=== PATIENT | female | born 1945 | race Caucasian/White ===

== ENCOUNTER 2017-04-11 07:20 | Day surgery (SDC) | payer MEDICARE ==
[~2017-04-11] VITALS: Ht 170.2 cm; Wt 80.2 kg
[2017-04-11] MEDS ORDERED: ESCI20 PO (08:09)
[2017-04-11] MEDS ORDERED: LEVO-T75 MCG PO (08:09)
[2017-04-11] MEDS ORDERED: LIOT25 PO (08:10)
== END 2017-04-11 13:30 | disposition home or self-care (01) ==
LOC: ORSCSDS 07:20
PROVIDERS: Orthopaedic Surgery
PROC: 0PSJ04Z Reposition Left Radius with Internal Fixation Device, Open Approach (ICD-10-PCS; principal; 2017-04-11 08:45)
DX: S52.502A Unspecified fracture of the lower end of left radius, initial encounter for closed fracture (principal); E03.9 Hypothyroidism, unspecified; F17.210 Nicotine dependence, cigarettes, uncomplicated; Z79.899 Other long term (current) drug therapy; Z86.79 Personal history of other diseases of the circulatory system
CPT/HCPCS: C1713; J0171; J0690; J2250; J2405; J3010; J7120

== ENCOUNTER 2019-05-17 10:36 | Emergency (ER) | payer MEDICARE ==
[~2019-05-17] VITALS: Ht 170.2 cm; Wt 76.2 kg
[~2019-05-17 10:36] MED LIST: ESCI20 PO; LEVO-T75 MCG PO; LIOT25 PO
== END 2019-05-17 11:57 | disposition home or self-care (01) ==
LOC: ER 10:36
DX: M54.32 Sciatica, left side (principal); Z88.6 Allergy status to analgesic agent; Z79.899 Other long term (current) drug therapy
CPT/HCPCS: 99283; J1885

== ENCOUNTER 2019-05-21 14:07 | Inpatient (IN) | payer MEDICARE ==
[~2019-05-21] VITALS: Ht 172.7 cm; Wt 75.6 kg
[~2019-05-21 14:07] MED LIST changes: -ESCI20 PO; -LEVO-T75 MCG PO; +LEVSOD100 PO; -LIOT25 PO
[2019-05-21 14:37] LABS: BASOPHILS ABSOLUTE AUTO 0.02 K/mm3 (0.00-0.23); BASOPHILS PERCENT AUTO 0 % (0-2); EOSINOPHILS ABSOLUTE AUTO 0.03 K/mm3 (0.00-0.68); EOSINOPHILS PERCENT AUTO 0 % (0-6); IMMATURE GRAN ABSOLUTE AUTO 0.04 K/mm3 (0.00-0.10); IMMATURE GRAN PERCENT AUTO 0 % (0-1); LYMPHOCYTES ABSOLUTE AUTO 1.42 K/mm3 (0.84-5.20); LYMPHOCYTES PERCENT AUTO 10 % (21-46); MONOCYTES ABSOLUTE AUTO 0.73 K/mm3 (0.16-1.47); MONOCYTES PERCENT AUTO 5 % (4-13); Mean Corpuscular HGB 35.9 pg (26.0-34.0); Mean Corpuscular HGB Conc 34.2 g/dL (31.5-36.5); Mean Corpuscular Volume 105 fL (80-100); Mean Platelet Volume 9.8 fL (9.1-12.4); NEUTROPHILS PERCENT AUTO 84 % (41-73); Platelet Count 231 K/mm3 (150-400); RDW Coefficient Variation 12.1 % (11.7-14.2); RDW Standard Deviation 47.6 fL (35.1-46.3); Red Blood Cell Count 3.62 M/mm3 (3.80-5.20); White Blood Cell Count 13.84 K/mm3 (4.00-11.30)
[2019-05-21 14:49] LABS: Source, Urine Clean Catch
[2019-05-21 14:56] LABS: Alanine Aminotransfer (ALT/SGP 23 U/L (12-78); Albumin, Blood 3.7 g/dL (3.4-5.0); Albumin/Globulin Ratio 1.2 (0.8-1.8); Alk Phos 45 U/L (50-136); Anion Gap 7 mmol/L (6-16); Aspartate Aminotrans (AST/SGOT 24 U/L (12-37); Bilirubin, Total 0.8 mg/dL (0.1-1.0); Blood Urea Nitrogen 21 mg/dL (8-24); Bun/Creatinine Ratio 26.6 (12.0-20.0); CO2, Blood 25 mmol/L (21-32); Calcium, Blood 8.6 mg/dL (8.5-10.1); Chloride, Blood 109 mmol/L (98-108); Creatinine, Blood 0.79 mg/dL (0.40-1.00); Globulin, Blood 3.1 g/dL (2.2-4.0); Glomerular Filtration Rate >60 (60-); Glucose, Blood 169 mg/dL (70-99); Potassium, Blood 3.6 mmol/L (3.5-5.5); Sodium, Blood 141 mmol/L (136-145); Total Protein, Blood 6.8 g/dL (6.4-8.2)
[2019-05-21 14:59] LABS: Bilirubin, Urine Neg (Neg); Blood, Urine 2+ (Neg); Glucose Qualitative, Urine Neg (Neg); Ketones, Urine Neg (Neg); Leukocyte Esterase, Urine Neg (Neg); Nitrite, Urine Neg (Neg); Protein, Urine Neg (Neg); Urobilinogen, Urine NORM (Normal)
[2019-05-21 15:10] LABS: Appearance, Urine Clear (Clear); Color, Urine Yellow (P-Yellow)
[2019-05-21 15:12] LABS: Bacteria Few /hpf; Mucus Light (0-Heavy); Squamous Epithelial Cells Few /hpf (Few); White Blood Cells, Urine 0-2 /hpf (0-5)
[2019-05-21] MEDS ORDERED: LIOT25 PO (15:49)
[2019-05-21] MEDS ORDERED: ESCI20 PO (15:49)
--- NOTE | 2019-05-21 16:17 | NUR ---
REPORT RECIEVED FROM JANELLE OH RN AT THIS TIME. PT CURRENTLY IN OR
--- NOTE | 2019-05-21 17:28 | NUR ---
History, Chart, Medications and Allergies reviewed before start of procedure.PER ER DAUGHTER ON HER WAY FROM [place]. WILL NEED TO GET TELEPHONE CONSENT FROM DAUGHTER DUE TO HX DEMENTIA.
--- NOTE | 2019-05-21 17:50 | NUR ---
IT WAS DETERMINED THAT PATIENT WAS OKAY TO SIGN OWN CONSENT. ABLE TO REP0RT UNDERSTANDING OF ABD SURGERY DUE TO ABD PAIN AND NAME AND
--- NOTE | 2019-05-21 20:58 | NUR ---
NG TUBE RIGHT NARE WHEN BROUGHT TO PACU INTACT WHEN SHE WAS TRANSFERED TO ICU
--- NOTE | 2019-05-22 | NUR ---
PT TO ICU 13 @ 2044 VIA WANDA WITH YARDAGE CONTROL OPERATOR FORMING. PT ALERT AND ORIENTED TO SELF, LOCATION, MONTH AND FOLLOWING DIRECTIONS. PT CONFUSED TO EVENTS, STS SHE HAS BEEN IN THE HOSPITAL FOR A COUPLE OF DAYS. PT PLEASANT AND VERY APPRECIATIVE OF NURSING CARE, VERY FORGETFUL, BUT REDIRECTABLE AND COOPERATIVE. UPON ARRIVAL TO UNIT, PT ON 10L O2 PER OXIMIZER. PT TITRATED DOWN TO 2L O2 PER NC (SEE FLOWSHEET), O2 SATURATIONS>90%. MONITOR SHOWS SINUS RHYTHM, HR 70'S, BP STABLE. PT WITH NG, CLAMPED, DENIES NAUSEA AT THIS TIME. LIUDMILA WOUND VAC TO MID ABD, SMALL AMOUNT OF SANGUINEOUS DRAINAGE NOTED, TARIQ DRAIN TO LOWER ABD WITH SEROSANGUINEOUS DRAINAGE. PT DENIES PAIN AT THIS TIME EXCEPT WITH COUGH AND REPOSITIONING, DENIES NEED FOR PAIN MEDICATION AT THIS TIME, EDUCATED PT ON SPLINTING WITH PILLOW TO DECREASE PAIN WHILE COUGHING. CASTELLON IN PLACE DRAINING JAVIER COLORED URINE, SCD'S IN PLACE, LR AND PROTONIX GTT INITIATED, CALL LIGHT WITHIN REACH. PTS DAUGHTER TO ROOM, EXPRESSES CONCERN REGARDING PT LIVING ALONE, STS PT HAS HAD INCREASED DIFFICULTY REMEMBERING TO TAKE DAILY MEDICATIONS, GO TO DOCTORS APPOINTMENTS, AND PERFORM ADL'S. PT HAS BEEN RESISTANT TO RECEIVING ANY SORT OF ASSISTANCE FROM FAMILY AND CARE GIVERS.
[2019-05-22 03:42] LABS: Hematocrit 35.2 % (33.0-51.0); Hemoglobin 11.9 g/dL (11.5-16.0); Mean Corpuscular HGB 35.7 pg (26.0-34.0); Mean Corpuscular HGB Conc 33.8 g/dL (31.5-36.5); Mean Corpuscular Volume 106 fL (80-100); Mean Platelet Volume 9.7 fL (9.1-12.4); Platelet Count 180 K/mm3 (150-400); RDW Coefficient Variation 12.2 % (11.7-14.2); RDW Standard Deviation 47.7 fL (35.1-46.3); Red Blood Cell Count 3.33 M/mm3 (3.80-5.20); White Blood Cell Count 9.25 K/mm3 (4.00-11.30)
[2019-05-22 03:49] LABS: Anion Gap 5 mmol/L (6-16); Blood Urea Nitrogen 17 mg/dL (8-24); Bun/Creatinine Ratio 20.4 (12.0-20.0); CO2, Blood 25 mmol/L (21-32); Chloride, Blood 113 mmol/L (98-108); Creatinine, Blood 0.84 mg/dL (0.40-1.00); Glomerular Filtration Rate >60 (60-); Glucose, Blood 147 mg/dL (70-99); Potassium, Blood 3.4 mmol/L (3.5-5.5); Sodium, Blood 143 mmol/L (136-145)
--- NOTE | 2019-05-22 04:00 | NUR ---
PRN DILAUDID PROVIDED FOR PAIN WITH NO RELIEF.
--- NOTE | 2019-05-22 04:26 | NUR ---
CALL PLACED TO DR GUAN REGARDING MORNING LABS, PAIN AND NG CLARIFICATION. ORDER FOR DILAUDID DRY MOP MAKER, 40 MEQ KCL IV, AND NG TO LOW INTERMITENT SUCTION.
--- NOTE | 2019-05-22 04:36 | NUR ---
FOLLOW UP WITH DR GUAN REGARDING DILAUDID SOFTWARE RELEASE ENGINEER, ORDER CHANGED TO 0.4MG DILAUDID IV Q2H PRN FOR PAIN.
[2019-05-22 05:21] LABS: BAND PERCENT MAN 24 % (0-8); BASOPHILS PERCENT MAN 0 % (0-2); EOSINOPHILS PERCENT MAN 0 % (0-6); LYMPHOCYTES ABSOLUTE MAN 0.64 K/mm3 (0.84-5.20); LYMPHOCYTES PERCENT MAN 7 % (21-46); MONOCYTES ABSOLUTE MAN 0.37 K/mm3 (0.16-1.47); MONOCYTES PERCENT MAN 4 % (4-13); NEUTROPHILS ABSOLUTE MAN 8.23 K/mm3 (1.96-9.15); SEG NEUTROPHILS PERCENT MAN 65 % (41-73); TOTAL CELLS COUNTED 100
--- NOTE | 2019-05-22 06:06 | NUR ---
SHIFT SUMMARY PT REMAINS STABLE T/O NIGHT, RESTED WELL, AWOKE @ APPROX 0330 WITH SOME COMPLAINTS OF ABD PAIN, PRN PN MEDICATION PROVIDED, SEE CALL PLACED TO DR GUAN. PT ON 2L O2 PER NC, OXYGEN SATURATIONS>90%. MONITOR SHOWS SINUS RHYTHM, HR 70'S, BP STABLE. WOUND VAC IN PLACE, SMALL AMOUNT OF DRAINAGE. TARIQ DRAIN IN PLACE WITH 90ml DRAINAGE THIS SHIFT. PT COMPLAINS OF THIRST, ORAL SWABS AND MOISTURIZER PROVIDED. PT VERY FORGETFUL, NEEDING REMINDING OF NPO STATUS, CASTELLON PRESTENT TO DRAIN URINE, AND REMINDING THAT DAUGHTER (WHO LIVES OUT OF TOWN) VISITED LAST NIGHT AND WILL BE BACK THIS MORNING. PT REMAINS PLEASANT AND COOPERATIVE, VERY APPRECIATIVE OF NURSING CARE.
--- NOTE | 2019-05-22 09:07 | NUR ---
CARE ASSUMED ASSESSMENT COMPLETED, PT AWAKE, ALERT AND ORINETED, SPEECH SLOW AND SLURRED, THIS IS BASELINE ACCORDING TO RN REPORT. VSS, PT DENIES PAIN AT THIS TIME, ATE SOME BREAKFAST WITHOUT DIFFICULTY. PT JAUNDICED, BRUISING NOTED TO UE'S, LE'S EDEMATOUS, ABX OINTMENT APPLIED PER ORDERS. R INNER THIGH WEEPING, DRESSING CHANGED. PT DENIES C/O AT THIS TIME, IS PLEASANT AND COOPERATIVE. AT BEDSIDE. JONATHAN CURIEL AND EUNICE IN TO ASSESS, PT TO DIALYSIS AT 0905.
--- NOTE | 2019-05-22 09:11 | NUR ---
CARE ASSUMED ASSESSMENT COMPLETED, PT AWAKE AND ALERT, FORGETFUL, PLEASANT, VSS. LIUDMILA DRESSING TO MID ABD DRY AND INTACT WITH A SMALL AMOUNT OF DRIED BLOOD, PRESENT, JAQUAN DRAIN TO LLQ COMPRESSED WITH SEROSANG DRAINAGE. PT REPORTS 8/10 MID ABD PAIN, DENIES NAUSEA, MEDICATED PER ORDERS. BT ABSENT, NO DISTENSION NOTED, ABD SOFT. CASTELLON PATENT AND DRAINING, PROTONIX AND POTASSIUM INFUSING PER ORDERS. NGT TO LIWS WITH SMALL AMOUNT OF GREEN BILE. DAUGHTER AT BEDSIDE INTERMITTENTLY, PT SLEEPING AFTER DILAUDID.
--- NOTE | 2019-05-22 11:29 | NUR ---
PT RESTING WELL AFTER DILAUDID, WOKEN FOR REPOSITIONING AND C/O PAIN, MEDICATED AGAIN PER ORDERS. ABD ASSESSMENT UNCHANGED, VS REMAIN STABLE, PT ORINETED BUT FORGETFUL, DENIES OTHER NEEDS AT THIS TIME, COOPERATIVE WITH CARE.
[2019-05-22] MEDS ORDERED: METPRE4DP PO (11:36)
--- NOTE | 2019-05-22 11:39 | NUR ---
PER PT'S DAUGHTER, PT HAS A DEEP BRAIN STIMULATOR IMPLANT IN LEFT SUBCLAVIAN AREA TO TREAT ESSENTIAL TREMORS. PT DOES NOT HAVE AN AICD.
--- NOTE | 2019-05-22 14:10 | NUR ---
UPDATE PT'S SON AND DAUGHTER AT BEDSIDE, DR. GUAN IN TO SPEAK WITH PT AND FAMILY. IT BUSINESS SYSTEMS ANALYST CONSULTED FOR FAMILY CONCERNS OF PATIENT HAVING DEMENTIA AND BEING UNABLE TO CARE FOR HERSELF AT HOME. PT CONTINUES TO REST, WAKES EASILY, VSS. PT PALE, BP AND HR WNL.
--- NOTE | 2019-05-22 17:49 | NUR ---
UPDATE PT CONTINUES TO REST, HAS BEEN SLEEPING MOST OF THE DAY. WOKE UP FOR AN HOUR EARLIER FOR MD AND FAMILY VISIT. WAKES EASILY, IS CONFUSED/FORGETFUL BUT APPROPRIATE. VSS T/O SHIFT, ABD ASSESSMENT REMAINS UNCHANGED, NO BT PRESENT. JAQUAN WITH 60ML SEROSANG OUTPUT, NO BLEEDING AT WOUND VAC SITE. SCANT OUTPUT FROM NGT TO LIWS, OUTPUT GREEN BILE. URINE OUTPUT LOW TODAY, DR. GUAN NOTIFIED EARLIER OF THIS, INSTRUCTIONS TO CONTINUE LR@100ML/HR AND MONITOR OUTPUT. PT REPOSITIONING SELF IN BED, DENIES NEEDS AT THIS TIME. MUSTANGER DISCUSSED PLAN OF CARE WITH PT'S SON, DAUGHTER AND DR. WILSON.
--- NOTE | 2019-05-22 18:51 | NUR ---
REPORT TO ONCOMING SHIFT. PT CONTINUES TO SLEEP, VSS. O2 2L/NC.
--- NOTE | 2019-05-22 19:31 | NUR ---
ASSUMED CARE OF PT AT 1915. REPORT RECEIVED AT BEDSIDE. PT PRESENTS IN BED SLEEPING. PT IN NO APPARENT DISTRESS AT THIS TIME. WILL COMPLETE ASSESSMENT UPON NEXT PT CHECK. ALLOW PT TO REST. WILL REVIEW CHART AND PLAN OF CARE FOR PT.
--- NOTE | 2019-05-23 01:10 | NUR ---
PT HAS TOLERATED TURNS IN BED WELL. ABLE TO ASSIST WITH REPOSITIONING. NO CHANGES TO PREVIOUS ASSESSMENT OF DRESSINGS. JAQUAN BULB REMAINS COMPRESSED FOR SUCTION. WILL CONTINUE TO MONITOR.
[2019-05-23 03:40] LABS: BASOPHILS ABSOLUTE AUTO 0.02 K/mm3 (0.00-0.23); BASOPHILS PERCENT AUTO 0 % (0-2); EOSINOPHILS ABSOLUTE AUTO 0.06 K/mm3 (0.00-0.68); EOSINOPHILS PERCENT AUTO 1 % (0-6); Hematocrit 34.3 % (33.0-51.0); Hemoglobin 11.3 g/dL (11.5-16.0); IMMATURE GRAN ABSOLUTE AUTO 0.03 K/mm3 (0.00-0.10); IMMATURE GRAN PERCENT AUTO 0 % (0-1); LYMPHOCYTES ABSOLUTE AUTO 1.02 K/mm3 (0.84-5.20); LYMPHOCYTES PERCENT AUTO 15 % (21-46); MONOCYTES ABSOLUTE AUTO 0.34 K/mm3 (0.16-1.47); MONOCYTES PERCENT AUTO 5 % (4-13); Mean Corpuscular HGB 35.5 pg (26.0-34.0); Mean Corpuscular HGB Conc 32.9 g/dL (31.5-36.5); Mean Corpuscular Volume 108 fL (80-100); Mean Platelet Volume 9.9 fL (9.1-12.4); NEUTROPHILS ABSOLUTE AUTO 5.54 K/mm3 (1.96-9.15); NEUTROPHILS PERCENT AUTO 79 % (41-73); Platelet Count 149 K/mm3 (150-400); RDW Coefficient Variation 12.2 % (11.7-14.2); RDW Standard Deviation 48.5 fL (35.1-46.3); Red Blood Cell Count 3.18 M/mm3 (3.80-5.20); White Blood Cell Count 7.01 K/mm3 (4.00-11.30)
[2019-05-23 04:07] LABS: Magnesium, Blood 1.8 mg/dL (1.6-2.4)
[2019-05-23 04:24] LABS: Alanine Aminotransfer (ALT/SGP 22 U/L (12-78); Albumin, Blood 2.6 g/dL (3.4-5.0); Albumin/Globulin Ratio 0.8 (0.8-1.8); Anion Gap 3 mmol/L (6-16); Aspartate Aminotrans (AST/SGOT 16 U/L (12-37); Bilirubin, Total 0.6 mg/dL (0.1-1.0); Blood Urea Nitrogen 15 mg/dL (8-24); Bun/Creatinine Ratio 19.8 (12.0-20.0); CO2, Blood 28 mmol/L (21-32); Calcium, Blood 8.3 mg/dL (8.5-10.1); Chloride, Blood 113 mmol/L (98-108); Creatinine, Blood 0.76 mg/dL (0.40-1.00); Globulin, Blood 3.1 g/dL (2.2-4.0); Glomerular Filtration Rate >60 (60-); Glucose, Blood 88 mg/dL (70-99); Potassium, Blood 3.8 mmol/L (3.5-5.5); Sodium, Blood 144 mmol/L (136-145); Total Protein, Blood 5.7 g/dL (6.4-8.2)
[2019-05-23 04:33] LABS: Alk Phos 38 U/L (50-136)
--- NOTE | 2019-05-23 06:19 | NUR ---
PT HAS BEEN MEDICATED THREE TIMES THIS NIGHT WITH 0.4 MG DILAUDID FOR ABDOMINAL PAIN. PT'S JAQUAN DRAIN HAS BEEN EMPTIED OF 100 ML SEROUSANGEOUS FLUID. PT REMAINS PLEASANT AND VERY APPRECIATIVE OF STAFF. SHE HAS BEEN ABLE TO REPOSITION HERSELF AT TIMES IN BED.
--- NOTE | 2019-05-23 06:22 | NUR ---
PT'S NGT HAS ONLY SMALL AMOUNT OF CLEAR LIGHT GREEN LIQUID. PT HAS DENIED ANY FLATUS THIS NIGHT. DOES HAVE HYPOACTIVE BOWEL TONES. WILL CONTINUE TO MONITOR PT, AND WILL REPORT OFF TO ONCOMING RN.
--- NOTE | 2019-05-23 10:04 | NUR ---
ASSUMED CARE PT IS IN BED, ALERT AND ORIENTED TO SELF, FAMILY, SURROUNDINGS (NOT PLACE - THOUGHT SHE WAS IN A [facility] OR [facility]) AND SORT OF THE SITUATION. SHE HAS SOME MEMORY ISSUES, ASKING THE SIMILAR QUESTIONS IN A ROW. SHE HAS A MIDLINE INCISION THAT HAS A LIUDMILA WOUND VAC TO IT, DRESSING HAS MINIMAL DRAINAGE THAT IS NOT INCREASING, AND SHE HAS A JAQUAN DRAIN IN HER LLQ WITH MINIMAL SEROSANGUINOUS DRAINAGE. I BELIEVE SHE IS IN A SINUS RHYTHM BUT WITH SOME T WAVE ABNORMALITIES AND POTENTIALLY A BUNDLE BRANCH BLOCK OF SOME KIND. SHE HAS A STABLE RATE, AND SLIGHTLY ELEVATED BLOOD PRESSURES. SHE DENIES PAIN UNLESS SHE COUGHS OR LAUGHS, MARIBELL INSTRUCTED HER HOW TO USE A PILLOW WHEN SHE HAS TO DO THOSE TWO THINGS. SHE CURRENTLY IS GONE TO IMAGING FOR HER CT SCAN. SHE HAS A NG TUBE HOOKED UP TO LIS SHOWING A BILE-COLORED LIQUID. DENIES NAUSEA. BED LOW AND LOCKED. CALL LIGHT WITHIN REACH.
--- NOTE | 2019-05-23 17:52 | NUR ---
SHIFT SUMMARY TODAY HAS BEEN QUITE THE DAY. SHE IS ALERT AND HAS BEEN AWAKE FOR MAJORITY OF DAY, AND SHE IS ORIENTED TO HERSELF, FAMILY, AND GENERAL SURROUNDINGS. SHE HAS SIGNS OF DEMENTIA, LIKE SHORT TERM MEMORY LOSS AND COGNITIVE DYSFUNCTION. SOME EXAMPLES: 1. I PLACED A CUP OF WATER WITH MOUTH-WATTERING SWABS BY THE BED, AND SHE PICKED UP THE CUP AND TRIED TO SUCK WATER THROUGH THE SWABS LIKE IF THEY WERE STRAWS. AFTER STOPPING HER AND EXPLAINING WHAT THEY WERE, SHE PROCEEDED TO DO IT AGAIN 3 MINUTES LATER. 2. SHE KEEPS TELLING ME ABOUT HER KIDS AND WHAT THEY DO PROFESSIONALLY AND KEEPS GETTING SURPRISED THAT THEY HAVE BEEN VISITING ALL DAY. 3. ASKING WHEN SHE CAN LEAVE SO SHE CAN GO HOME AND TAKE CARE OF HER DOGS AND NOT REALIZING SHE HAS HAD A SURGERY (OVER AND OVER AGAIN). ALSO FORGETTING THAT HER DAUGHTER IS VISITING FROM [place] AND HAS BEEN STAYING AT THE HOUSE. 4. KEEPS MESSING WITH THINGS THAT ARE CONNECTED TO HER (LINES, TUBES, DRAINS) AND THINKING THEY ARE DIFFERENT THINGS. LIKKE THINKING THE PULSE OX WAS THE CALL LIGHT BUTTON. HER DAUGHTER, STATES, THIS IS HER BASELINE AT HOME. DEYSI (HER SON) AND RICARDO ARE BOTH VERY CONCERNED FOR HER SAFETY. FEELING THAT SHE IS UNABLE TO TAKE CARE OF HERSELF. THEY WISH TO GAIN [place]URDI[place]SHIP. THE LAST FEW HOURS SHES BEEN TRYING TO GET UP, ONE TIME BEING SUCCESSFUL STANDING UP AND GETTING A FEW STEPS AWAY FROM THE BED. HER CASTELLON WAS TAKEN OUT (BALLOON STILL INFLATED) AND WAS BLEEDING FROM HER URETHRA, WHICH HAD STOPPED SHORTLY AFTER. ONE OF HER IV'S CAME OUT, SHE HAD PULLED OUT HER NG TUBE OUT TOO AND BROKE THE LIUDMILA WOULD VAC ALONG WITH TAKING OFF THE JAQUAN DRAIN DRESSING. AND FORGETTING ABOUT DOING ALL OF THIS. THIS OCCURED AND HAS BEEN OCCURING AFTER THE FAMILY LEFT. SHE HAD BEEN IN [employer] ALL DAY, AND DESPITE BEING FORGETFUL AND CONFUSED. SHE HAS SINCE BECOME VERY AGITATED, DEMANDING SHE LEAVE AND FEED HER DOGS. SHE HAS CALLED HER FRIEND TO COME PICK HER UP, SAYING SHE IS READY TO GO HOME. WITH EVERYTHING THAT HAPPENED AND IN ORDER TO KEEP HER SAFE SHE WAS PUT IN RESTRAINTS BOTH A MARTHA AND BILATERAL SWBs. DR MEDEL ORDERED 0.25MG ATIVAN BUT HAD MINIMAL EFFECT. SHE REMAINS IN BED IN RESTRAINTS, SLIGHTLY MORE CALM BUT REMAINS AGITATED AND CONVINCED SHE NEEDS TO LEAVE. PLATE FITTER IS CONSULTED AND WILL FOLLOW UP WITH FAMILY AND PT. BED LOW AND LOCKED. CALL LIGHT HAS BEEN IN REACH ALL DAY.
--- NOTE | 2019-05-23 19:15 | NUR ---
ASSUMED CARE AT 1915. PT ALERT TO SELF AND FAMILY AT SHIFT CHANGE. VITAL WNL. SHORT TERM MEMORY LOSS. FORGETS SHE IS IN THE HOSPITAL MID CONVERSATION. BECOMES AGITATED WITH THE RESTRAINTS, PT BELIEVE SHE IS AT HOME EVEN AFTER REORIENTATED. DENIES PAIN BUT IS IN DISCOMFORT, WITH MOVEMENT AND REPOSITION.
--- NOTE | 2019-05-23 21:31 | NUR ---
PT RESTLESS, PULLING A RESTRAINTS, FORGETFUL . REORIENTATED AND 5 MINUTES LATER PT REPEATS SAME REQUEST AND ATTEMPS TO GET OUT OF BED AND PULL OUT LINES
--- NOTE | 2019-05-23 22:59 | NUR ---
PT REQUETING TO GO HOME TO TAKE CARE OF DOGS. FORGOT DAUGHTER VISITED TODAY AND DOES NOT KNOW WHY SHE CAME IN TO HOSPITAL. REQUESTED DOCTOR COME EVALUATE. FORGETS SHE HAD SURGERY.
--- NOTE | 2019-05-23 23:45 | NUR ---
PT BECAME HIGHLY AGITATED SCREAMING ABOUT GOING HOME TO TAKE CARE OF DOGS. PT REMINDED THAT DAUGHTER IS TAKING CARE OF THEM, REFUSES TO BELEIVE STAFF AND IS CONVINCED THAT SHE CAME IN ON HER OWN. PT MANAGED TO SLIP OUT OF RIGHT HAND RESTRAINT AND SWUNG AT MYSELF WITTNESSED BY DINAH MENSAH. PT THREATENED TO PUNCH ME IN THE FACE.
--- NOTE | 2019-05-24 00:33 | NUR ---
PT SLIPPED OUT OF RESTRAINT AGAIN. PT VERBALIZED PAIN, DILAUDID GIVEN. PT STILL TRYING TO GO HOME AND DENIES HAVING SURGEY.
--- NOTE | 2019-05-24 00:56 | NUR ---
PT WOKE UP FROM [place]. DOES NOT REMEMBER ME OR OTHER STAFF, UNABLE TO REMEMBER HOW SHE ARRIVED TO HOSPITAL AND IS DEMANDING US TO LET HER GO HOME. ABLE TO PLAY THE PART AND TRY TO SAY WHAT STAFF WANTS TO HEAR IN ABLE TO LET HER LEAVE. SHE DOES NOT REALIZE THAT SHE IS RECOVERING FROM A SURGERY. SHE IS DENIAL AND IS A SAFETY RISK AND A CONCERN FOR HOME SAFETY BEING SHE LIVES ALONE WITH HER DOGS.
--- NOTE | 2019-05-24 02:30 | NUR ---
HELP PT TO BEDSIDE TOILET WITH NO OUTPUT. PLACED BACK IN BED. WHEN I WENT REAPPLY RESTRAINTS PT SAT UP AND TRIED TO GET OUT OF BED AND GO HOME. WITH THE CHARGE NURSE ASSISTED TO GET HER TO LAY BACK DOWN. ONCE SHE WAS LAID FLAT PT WENT TO SLEEP.
--- NOTE | 2019-05-24 06:07 | NUR ---
PT CONFUSED, SHORT-TERM MEMORY LOSS, DID NOT REMEMBER HAVING SURGERY, AND WAS CONSTANLY TYING TO GET OUT OF AND AND LEAVE HOSPITAL. NO RECOLECTION OF HOW SHE ARRIVED AT THE HOSPITAL. WHEN TOLD AND SHOWN SURGERY SITE AND DRAINS WOULD SAY IT WAS OLD. AT ONE POINT SHE WAS THREATENING MYSELF AND DID SWING TOWARDS MY FACE. PROVIDER CALLED HALDOL ORDERED AND GIVEN. PT STILL AGITATED. SHE DID VERBALIZE PAIN ONCE. SHE DOES MOAN AND GRUNT WITH REPOSTION AND TURNS. BUT REFUSED ANY MORE PAIN MEDS. SHE WAS ABLE TO SLIP OUT OF WRIST RESTRAINTS MULTIPLE TIME, AND ATTEMPED TO GET OUT OF BED. PT DID NOT PULL AT IV,LINES OR DRAIN AND WAS ABLE TO REST COMFORTABLE IN VEST ONLY. THE WRIST RESTRAINTS WERE CASUING MORE AGGITATION THROUGHOUT THE NIGHT. NEW RESTAINT ORDER PLACED FOR VEST ONLY. PT WOKE UP MORE COOPERTIVE. WITH THAT SAID I DO BELEIVE SHE IS A FALL/SAFETY RISK AND MAY NEED ASSISTANTS AT HOME WELL. POSSIBLY SUN DOWNING. WILL CONTINUE TO MONITOR, MAY NEED PSYCH EVAL TO DX DEMENTIA OR SIMULAR DIEASE PROCESS.
[2019-05-24 06:22] LABS: BASOPHILS ABSOLUTE AUTO 0.02 K/mm3 (0.00-0.23); BASOPHILS PERCENT AUTO 0 % (0-2); EOSINOPHILS ABSOLUTE AUTO 0.13 K/mm3 (0.00-0.68); EOSINOPHILS PERCENT AUTO 2 % (0-6); IMMATURE GRAN ABSOLUTE AUTO 0.03 K/mm3 (0.00-0.10); IMMATURE GRAN PERCENT AUTO 0 % (0-1); LYMPHOCYTES ABSOLUTE AUTO 0.74 K/mm3 (0.84-5.20); LYMPHOCYTES PERCENT AUTO 11 % (21-46); MONOCYTES ABSOLUTE AUTO 0.39 K/mm3 (0.16-1.47); MONOCYTES PERCENT AUTO 6 % (4-13); Mean Corpuscular HGB 35.9 pg (26.0-34.0); Mean Corpuscular HGB Conc 34.4 g/dL (31.5-36.5); Mean Corpuscular Volume 105 fL (80-100); Mean Platelet Volume 9.7 fL (9.1-12.4); NEUTROPHILS ABSOLUTE AUTO 5.44 K/mm3 (1.96-9.15); NEUTROPHILS PERCENT AUTO 81 % (41-73); Platelet Count 164 K/mm3 (150-400); RDW Coefficient Variation 11.9 % (11.7-14.2); RDW Standard Deviation 45.4 fL (35.1-46.3); Red Blood Cell Count 3.06 M/mm3 (3.80-5.20); White Blood Cell Count 6.75 K/mm3 (4.00-11.30)
[2019-05-24 06:38] LABS: Albumin, Blood 2.6 g/dL (3.4-5.0); Anion Gap 5 mmol/L (6-16); Blood Urea Nitrogen 12 mg/dL (8-24); Bun/Creatinine Ratio 19.6 (12.0-20.0); CO2, Blood 27 mmol/L (21-32); Calcium, Blood 8.3 mg/dL (8.5-10.1); Chloride, Blood 108 mmol/L (98-108); Creatinine, Blood 0.61 mg/dL (0.40-1.00); Glomerular Filtration Rate >60 (60-); Glucose, Blood 86 mg/dL (70-99); Magnesium, Blood 1.7 mg/dL (1.6-2.4); Phosphorus, Blood 1.7 mg/dL (2.5-4.9); Potassium, Blood 3.3 mmol/L (3.5-5.5); Sodium, Blood 140 mmol/L (136-145)
--- NOTE | 2019-05-24 17:32 | NUR ---
Per admit trigger, I attempted to meet with Mrs. Reyes to offer prayer and spiritual support. She has been quite confused all day. No family present. this evening, she is finally resting. Prayer provided at bedside. I will remain available to pt and family.
--- NOTE | 2019-05-24 20:00 | NUR ---
ASSUMPTION OF CARE ASSUMED CARE OF PT @ 1915, PT SLEEPING IN BED, REPORT FROM PREVIOUS SHIFT PT MEDICATED WITH ATIVAN, BENADRYL AND ATIVAN. PT OPENS EYES WITH VERBAL STIMULI AND GRIMACES WITH PAINFUL STIMULI, MUMBLES SOME WORDS AND QUICKLY FALLS BACK ASLEEP. RESPIRATIONS EVEN AND UNLABORED, O2 SATURATIONS>90% ON 2L PER NC. MONITOR SHOWS SINUS RHYTHM WITH HR 48-50'S, BP STABLE. IMPLANTED NEUROSTIMULATOR DEVICE TO L UPPER CHEST. BOWEL TONES HYPOACTIVE, LIUDMILA WOUND VAC TO MIDLINE ABD, JAQUAN DRAIN TO LLQ MINIMAL DRAINAGE NOTED. BED ALARM ON, MARTHA VEST IN PLACE. CALL LIGHT WITHIN REACH.
--- NOTE | 2019-05-24 20:08 | NUR ---
BEDSIDE REPORT TAKEN AT 0715 THIS AM. PT'S DAUGHTER PRESENT AT BEDSIDE. PT PLEASANT AND COOPERATIVE AT BEGINNING OF SHIFT WHILE DAUGHTER PRESENT. PT ASSISTED T/O SHIFT TO COMMODE AND THEN TO TOILET TO VOID. PT ABLE TO BEAR WEIGHT BUT HAS UNSTAEDY GAIT AND SOME WEAKNESS NOTED. PT IMPULSIVE AND NEEDS SUPERVISION AT ALL TIMES. MARTHA VEST REMOVED THIS AM AT 1000 WITH DAUGHTER AT BEDSIDE. DR CARABALLO IN TO SEE PT AND SPEAK W PT'S DAUGHTER AT 1120. CONSULT WITH DR SANDOVAL ORDERED FOR COGNITIVE ASSESSMENT 2ND TO DEMENTIA. KPHOS RIDER ORDERED AND INFUSED. LR AT 100CC/HR PT NPO. DR GUAN IN TO SEE PT AT 0900; ABD XRAY ORDERED; PT DOWN TO XRAY FOR IMAGES. PLAN IS FOR A BARRIUM SWALLOW TOMORROW AND THEN POSSIBLE DIET TOMORROW. DRSG TO MIDLINE ABD C/D/I WITH LIUDMILA WOUND VAC; SCANT TO NO DRAINAGE NOTED. JAQUAN TO LLQ PUTTING OUT SCANT SS FLUID. AFTER PT'S DAUGHTER LEFT PT BECAME MORE AGITATED. PT CONTINUOUSLY CLIMBED OUT OF BED WITHOUT ASSISTANCE; BED ALARM ON. PT WOULD STATE THAT SHE WAS GOING HOME. PT WAS CONFUSED ABOUT DETAILS SURROUNDING SURGERY AND STATED THAT SHE WAS FINE AND HAD JUST EATEN. PT BECAME PHYSICAL AT ONE POINT GRABBING MY ARM AND TRYING TO WALK PAST/THROUGH ME. PT WAS DISTRACTED WITH PHYSICAL THERAPY; BUT ONCE AGAIN BECAME FURTHER CONFUSED AND AGITATED. SHE PULLED OUT TWO IV'S, BOTH INADVERTENTLY WHILE TRYING TO "LEAVE THE HOSPITAL TO GO HOME". DR SANDOVAL CONSULTED PT AND PLACED PT ON 2MD HOLD AND RECOMMENDED PLACEMENT IN [facility]. AFTER PHYSICAL THERAPY, PT WAS PLACED BACK ON TELEMETRY; PT WAS FOUND TO BE IN AFIB W RVR; RATE 110-136. PT HYPERTENSIVE WELL. DR CARABALLO CALLED. ONE DOSE OF IV CARDIAZEM 10MG GIVEN. PT ATTEMPTED TO GET OUT OF BED AGAIN SHORTLY AFTER THIS. PT REFUSED TO COOPERATE WITH PLACEMENT OF MARTHA AND BECAME VERY AGITATED, ATTEMPTING TO LEAVE AGAIN. ATIVAN/BENADRYL/AND HALDOL WERE GIVEN TOGETHER DR SANDOVAL HAD RECOMMENDED. PT ASLEEP SHORTLY THERE AFTER. HTN IMPROVED AND PT CONVERTED BACK INTO SINUS BRADYCARDIA. PT AROUSES FROM SLEEP TO VOICE. MARTHA VEST PLACED. REPORT GIVEN AT BEDSIDE AT 1920. CALL PLACED TO PT'S DAUGHTER TO GIVE UPDATE.
--- NOTE | 2019-05-24 20:30 | NUR ---
SPOKE WITH DAUGHTER, SIENA, UPDATED ON PTS STATUS. PT RESTING AT THIS TIME.
--- NOTE | 2019-05-24 22:00 | NUR ---
PT MORE AROUSABLE, OFFERED TOILETING, PT DECLINES AT THIS TIME. STS SHE WANTS TO GO BACK TO SLEEP. BED ALARM ON, CALL LIGHT WTIHIN REACH. MARTHA VEST REMAINS IN PLACE PT FORGETFUL TO LIMITATIONS, DEC LOC.
[2019-05-25 03:58] LABS: BASOPHILS ABSOLUTE AUTO 0.03 K/mm3 (0.00-0.23); BASOPHILS PERCENT AUTO 1 % (0-2); EOSINOPHILS ABSOLUTE AUTO 0.23 K/mm3 (0.00-0.68); EOSINOPHILS PERCENT AUTO 4 % (0-6); Hematocrit 32.6 % (33.0-51.0); Hemoglobin 11.4 g/dL (11.5-16.0); IMMATURE GRAN ABSOLUTE AUTO 0.01 K/mm3 (0.00-0.10); IMMATURE GRAN PERCENT AUTO 0 % (0-1); LYMPHOCYTES ABSOLUTE AUTO 0.91 K/mm3 (0.84-5.20); LYMPHOCYTES PERCENT AUTO 17 % (21-46); MONOCYTES PERCENT AUTO 7 % (4-13); Mean Corpuscular HGB 35.6 pg (26.0-34.0); Mean Corpuscular Volume 102 fL (80-100); Mean Platelet Volume 9.7 fL (9.1-12.4); NEUTROPHILS ABSOLUTE AUTO 3.83 K/mm3 (1.96-9.15); NEUTROPHILS PERCENT AUTO 71 % (41-73); Platelet Count 182 K/mm3 (150-400); RDW Coefficient Variation 11.7 % (11.7-14.2); RDW Standard Deviation 43.7 fL (35.1-46.3); White Blood Cell Count 5.41 K/mm3 (4.00-11.30)
[2019-05-25 04:21] LABS: Alanine Aminotransfer (ALT/SGP 20 U/L (12-78); Albumin, Blood 2.4 g/dL (3.4-5.0); Albumin/Globulin Ratio 0.8 (0.8-1.8); Alk Phos 36 U/L (50-136); Anion Gap 6 mmol/L (6-16); Aspartate Aminotrans (AST/SGOT 17 U/L (12-37); Bilirubin, Total 0.8 mg/dL (0.1-1.0); Blood Urea Nitrogen 11 mg/dL (8-24); Bun/Creatinine Ratio 15.9 (12.0-20.0); CO2, Blood 26 mmol/L (21-32); Calcium, Blood 8.2 mg/dL (8.5-10.1); Chloride, Blood 108 mmol/L (98-108); Creatinine, Blood 0.69 mg/dL (0.40-1.00); Globulin, Blood 2.9 g/dL (2.2-4.0); Glomerular Filtration Rate >60 (60-); Glucose, Blood 79 mg/dL (70-99); Magnesium, Blood 1.6 mg/dL (1.6-2.4); Phosphorus, Blood 2.6 mg/dL (2.5-4.9); Potassium, Blood 3.2 mmol/L (3.5-5.5); Sodium, Blood 140 mmol/L (136-145); Total Protein, Blood 5.3 g/dL (6.4-8.2)
--- NOTE | 2019-05-25 05:08 | NUR ---
REPORT CALLED TO TOO VALDIVIA ON MEDICAL FLOOR. UPDATED DAUGHTER ON PTS STATUS AND TRANSFER TO ROOM 346.
--- NOTE | 2019-05-25 06:08 | NUR ---
TRANSFER TO ROOM 346 PT ARRIVED TO ROOM 346 FROM ICU13 AT APPROXIMATELY 0550. PT ALERT AND ORIENTED TO SELF AND STAFF, FOLLOWING DIRECTION AND IS PLEASANT. PT ABLE TO TRANFER TO NEW BED WITH A 1 PERSON ASSIST. ASSISTED PT TO BSC AND THEN HELPED BACK TO BED, MARTHA SIMMONS ON. Jaime ANDRES STARTED. WILL CONTINUE TO MONITOR.
--- NOTE | 2019-05-25 07:48 | NUR ---
05/25/19 0748 Ela Croft VERIFICATIONS: EDIT CHART.
--- NOTE | 2019-05-25 13:55 | NUR ---
PT. TO RADIOLOGY FOR PROCEDURE VIA IVETTRJB. MARTHA VEST REMOVED BEFORE SHE LEFT AND IV S.L. LOCKED.REMOVED TELE AND NOTIFIED WIND TURBINE PERFORMANCE ENGINEER.
--- NOTE | 2019-05-25 18:28 | NUR ---
PT. BACK TO ROOM AFTER HAVING IMAGING WITH CONTRAST. HAS HAD DIARRHEA SEVEERAL TIMES SINCE RETURNING TO ROOM. PT. A STANDBY ASSIST TO THE BATHROOM. PT. HAS NOT BEEN COMBATIVE TODAY AND HAS BEEN COOPERATIVE. PT. IS SLEEPING AT THIS TIE.
--- NOTE | 2019-05-26 04:54 | NUR ---
SHIFT SUMMARY PT IS A 73 Y/O FEMALE, ADMITTED FOR PERITONITIS. SHE RECENTLY HAD AN ABD SURGICAL REPAIR OF A PERFORATED ULCER, WITH A WOUND VAC IN PLACE ON THE SURGICAL SITE AND A JAQUAN DRAIN IN THE L MID ABD. PT IS CONFUSED, A&O X SELF ONLY, AND A 1PA OUT OF BED. SHE WAS OVERALL COOPERATIVE WITH CARE. PT HAD SEVERAL EPISODES OF DIARRHEA DURING THE NIGHT, INCLUDING ONE INCONTINENT EPISODE. NO COMPLAINTS OF PAIN, NAUSEA OR SOB. PT SLEPT WELL THROUGH THE NIGHT. VITAL SIGNS STABLE. NO OTHER ACUTE CHANGES IN PT CONDITION NOTED. WILL CONTINUE TO MONITOR AND TREAT PER EMAR UNTIL HAND OFF TO DAY SHIFT RN.
--- NOTE | 2019-05-26 19:15 | NUR ---
PT. HAS PRETTY ANTSY ALL DAY TODAY, WOULDNOT STAY IN BED LOKKING FOR PHONE, HER DOGS. INSISTING SHE WAS GOING HOME BUT WITH ALL THIS SHE WAS REDIREECTED EASILY. THIS EVENING SHE WAS TRYING TO PULL HER JAQUAN SHE WAS DEETERMINED SHE WAS GOING HOME. COULD NOT REDIRECT HER. CALLED DR. SANDOVAL IF WE COULD GET SOME PO MEDS TO CALM HER DOWN. ZYPREXA 5 MG. GIVEN WHICH WAS NOT HELPING AN HOUR LATER, THEN PRESCRIBED 50 OF SEROQUEL. AN HOUR LATER THERE WAS NOT ANY CHANGE IN HER. RESTRAINTS HAD TO BE PLACED FOR HER SAFETY WHICH SHE WAS ABLE TO GET OUT OF. CALLED DR. MALDONADO AND HE ORDEERED A B52 SHOT WHICH TOOK QUITE SOME TIME TO WORK. ASSEMBLER DC FIELD YOKE STILL DEALING WITH HER, SHE IS SCREAMING FOR JILLIAN WHO SHE SAYS IS HER .
--- NOTE | 2019-05-27 04:24 | NUR ---
SHIFT SUMMARY ALERT; ORIENTED TO SELF. DIFFICULT TO RE-DIRECT. BECOMES IRRITABLE AND AGGRESSIVE AT TIMES. CONFUSED AND FORGETFUL OF LIMITATIONS. COOPERATIVE WITH CARE AT TIMES. MEDICATED PER EMAR FOR AGITATION. RESTRAINT DOCUMENTATION COMPLETED THROUGHOUT SHIFT. UP WITH MULTIPLE ATTEMPTS TO USE THE RESTROOM; UNSUCCESSFUL VOIDS. BLADDER SCAN YEILDED 863 ML. CONTACTED ON-CALL; ONE TIME ORDER FOR I/O. I/O YEILDED 550 ML. ON-CALL STATED THAT IF PATIENT CONTINUES TO RETAIN MAYBE ATTENDING COULD CONSIDER SOMETHING FOR FLOW. REMAINED ADAMANT THAT SHE WAS NOT IN ANY PAIN. BED IN LOWEST POSITION; ALARM ON. CALL LIGHT AND BELONGINGS WITHIN REACH. WCTM. REPORT TO ONCOMING RN.
[2019-05-27 05:32] LABS: BASOPHILS ABSOLUTE AUTO 0.05 K/mm3 (0.00-0.23); BASOPHILS PERCENT AUTO 1 % (0-2); EOSINOPHILS ABSOLUTE AUTO 0.22 K/mm3 (0.00-0.68); EOSINOPHILS PERCENT AUTO 3 % (0-6); Hematocrit 36.4 % (33.0-51.0); Hemoglobin 13.1 g/dL (11.5-16.0); IMMATURE GRAN ABSOLUTE AUTO 0.03 K/mm3 (0.00-0.10); IMMATURE GRAN PERCENT AUTO 0 % (0-1); LYMPHOCYTES ABSOLUTE AUTO 1.02 K/mm3 (0.84-5.20); LYMPHOCYTES PERCENT AUTO 15 % (21-46); MONOCYTES ABSOLUTE AUTO 0.61 K/mm3 (0.16-1.47); MONOCYTES PERCENT AUTO 9 % (4-13); Mean Corpuscular HGB 36.3 pg (26.0-34.0); Mean Corpuscular Volume 101 fL (80-100); NEUTROPHILS ABSOLUTE AUTO 5.08 K/mm3 (1.96-9.15); NEUTROPHILS PERCENT AUTO 73 % (41-73); RDW Coefficient Variation 11.8 % (11.7-14.2); RDW Standard Deviation 43.4 fL (35.1-46.3); Red Blood Cell Count 3.61 M/mm3 (3.80-5.20); White Blood Cell Count 7.01 K/mm3 (4.00-11.30)
[2019-05-27 05:40] LABS: Mean Platelet Volume 9.9 fL (9.1-12.4); Platelet Count 229 K/mm3 (150-400)
[2019-05-27 05:46] LABS: Anion Gap 7 mmol/L (6-16); Blood Urea Nitrogen 5 mg/dL (8-24); Bun/Creatinine Ratio 7.7 (12.0-20.0); CO2, Blood 26 mmol/L (21-32); Calcium, Blood 8.4 mg/dL (8.5-10.1); Chloride, Blood 111 mmol/L (98-108); Creatinine, Blood 0.65 mg/dL (0.40-1.00); Glomerular Filtration Rate >60 (60-); Glucose, Blood 115 mg/dL (70-99); Potassium, Blood 2.8 mmol/L (3.5-5.5); Sodium, Blood 144 mmol/L (136-145)
--- NOTE | 2019-05-27 11:30 | NUR ---
DAUGHTER CALLED AND LET HER KNOW WHICH PCU ROOM THE PT. WAS IN.
--- NOTE | 2019-05-27 11:55 | NUR ---
PT. UP IN CHAIR FOR BREAKFAST, TOLERATED WELL BUT MARTHA VEST IN PLACE. 2 PERSON ASSIST R/T WEAKNESS. 2 FISHING GAME WARDEN'S TRANSFERRED PT. TO [facility] STOOD WELL ,THEN SAT DOWN, CLLED TO ROOM BY FISHING GAME WARDEN'S PT. HAD PASSED OUT, HRR, BREATHING EVEN, BUT NO REPOSONSE. CALLED RR AT 1026. WENT TO MED ROOM AND PULLED NARCAN IN CASE PT. OVERMEDICATED, ENDED UP NOT GIVING NARCAN PHARMACIST SAID IT WOULD NOT WORK FOR THE MEDICATIONS HE WAS GIVEN, PT. TRANSFERRED TO BED, MARTHA VEST REMOVED. EKG DONE AT 1041 WHICH SHOWED PROLONGED T WAVE. DR. CARABALLO ORDERED PT. TO PCU. PT'S KCL LEVEL WAS AT 2.8 AND DUE TO THE FACT PT. WAS ON SEROQUEL ALSO IT WAS ASSUMED BY MEDICAL PROFESSIONALS THE PT. HAD A CARDIAC EVENT. REPORT GIVEN TO AMADOR Stephens RN IN PCU AND PT. TRANSFERRED TO PCU-8
--- NOTE | 2019-05-27 18:48 | NUR ---
PCU DAYSHIFT SUMMARY PATIENT ARRIVED TO UNIT AT APPROX 1230 - ALERT TO SELF AND FAMILY - CONFUSED TO SITUATION, DATE AND LOCATION. PATIENT SAT UP IN BED AND FOLLOWED DIRECTIONS MODERATLY WELL. PATIENT ON ROOM AIR - VSS - RIGHT HEART BLOCK NOTED ON MONITOR WITH RATE OF 60. PATIENT ATE DINNER WELL UNASSISTED. PATIENT WAS HAVING VISUAL AND AUDITIORY HALLUCIANTION - SHE STATED SHE HEARD HER NAME CALLED AND ALSO VERBALIZED THAT SHE WAS SEEING CATS AND DOGS MOVE IN HER ROOM. AT APPROX 1350 PATIENT BECOME AGITATED AND WANTED TO GET UP OUT OF BED, ATTEMPTED TO STAND PATIENT AND SHE WAS TO WEAK TO SUPPORT HER WEIGHT, PATIETN REDIRECTED BACK TO BED AND SHE BECAME COMBATIVE HITTING STAFF. PATIENT MEDICATED PER EMAR. PATIENT PULLED OF TELE WIRES DURING THIS TIME AND BIT OF THE END AND ATTEMPTED TO EAT IT (HEMOSTAT USED TO REMOVE OBJECTS FROM PATIENTS MOUTH) - PROVIDER MD ROTH NOTIFIED AND STATED TO FURTHER MEDICATE HER AND REAPPLY ORTHOTIC AND PROSTHETIC TECHNICIAN WHEN ABLE. PATIENT MEDICATED X2 DUE TO AGIATION AND VEST RESTRAINT APPLIED. PATIENT IS NOW DROWSY/LETHARGIC DUE TO MEDICATIONS PER EMAR AND IS MUMBLING INCOHERANTLY. RESP E/U ON ROOM AIR. AT THIS TIME PATIENT CONTINUES TO PULL AT WIRES AND VEST - UNDIRECTABLE AND UNCOOEPRATIVE WITH CARE. DURING THSI TIME PATIENT HAS REMAINED ON CONTINUOUS VIDEO MONITORING FOR SAFETY - OF WHICH THIS RN HAS BEEN NOTIFIED MULTIPLE TIMES OF PATIENT PULLING LINES AND ATTEMPTING TO GET OUT OF BED. BED ALARM ON AT THIS TIME - PATIENT CHECK PER RESTRAINT MONITORING (SEE RESTRAINT DOCUMENTATIONS.
[2019-05-28 04:21] LABS: Anion Gap 8 mmol/L (6-16); Blood Urea Nitrogen 6 mg/dL (8-24); Bun/Creatinine Ratio 8.6 (12.0-20.0); CO2, Blood 25 mmol/L (21-32); Calcium, Blood 8.7 mg/dL (8.5-10.1); Chloride, Blood 109 mmol/L (98-108); Glomerular Filtration Rate >60 (60-); Glucose, Blood 103 mg/dL (70-99); Potassium, Blood 3.2 mmol/L (3.5-5.5); Sodium, Blood 142 mmol/L (136-145)
--- NOTE | 2019-05-28 06:26 | NUR ---
SHIFT SUMMARY UPON CARE ASSUMPTION, PT SLEEPING, WAKING TO VERBAL STIMULATION, LETHARGIC AND MUMBLING INCOHERENTLY. PT THEN MORE ALERT AROUND 2029, ABLE TO STATE NAME & LOCATION & TAKE ORAL MEDICATIONS SAFELY. PT INTERMITTENTLY SPEAKING CLEARLY VS MUMBLING T/O SHIFT WELL BRIEFLY FOLLOWING INSTRUCTIONS & THEN FORGETING. PT REQUIRING REORIENTATION AND GUIDANCE T/O SHIFT. PT IN MARTHA VEST T/O SHIFT D/T PULLING AT LINES & MULTIPLE ATTEMPTS TO GET OOB. CENTRAL MONITORING ASSISTING IN CLOSER PT MONITORING WELL W/ MULTIPLE NOTIFACTIONS TO STAFF THIS SHIFT OF PT PULLING AT LINES/ATTEMPTING TO GET OOB. PT W/ 7 BEAT RUN OF VTACH THIS SHIFT WHILE PT SLEEPING. EVENT STRIP PRINTED AND PLACED IN CHART. OTHERWISE VSS. MONITOR SHOWS SR, HR 60's. SPO2 > 92% ON RA. RENETTA IN PLACE TO ABD MIDLINE INCISION. GAUZE COVERING PREVIOUS LLQ JAQUAN DRAIN SITE. PT CONTINENT W/ EPISODES OF INCONTINENCE OF URINE AND BOWEL, USING BEDPAN AND WEARING ATTENDS. WILL CONTINUE TO MONITOR AND PROVIDE CARE UNTIL REPORT OFF TO DAY SHIFT RN.
--- NOTE | 2019-05-28 11:13 | NUR ---
PT ALERT, CALM AND COOPERATIVE. PT IS ABLE TO ANSWER SOME QUESTIONS APPROPRIATELY. PT WAS UP TO BEDSIDE COMMODE WITH MINIMAL ASSISTANCE.
--- NOTE | 2019-05-28 16:16 | NUR ---
STAFF FROM [facility] LYON AT BEDSIDE
--- NOTE | 2019-05-28 17:42 | NUR ---
SHIFT NOTE PT HAS BEEN CALM AND COOPERATIE MOST OF SHIFT, AROUND 1700 PT BEGAN TO BECOME CONFUSED AFTER TALKING WITH [place] STAFF WHEN SHE BECAME UPSET SHE DOES NOT WISH TO MOVE TO [place]. PT IS FIXIATED THAT SHE HAS A BOOK THAT SHE IS READING THERE WAS NO BOOOK WITH PT THERE IS NOT ONE IN HER BELONGINGS. PT IS REDIRECTABLE BUT IS ARGUMENTIVE. PT HAS BEEN UP TO BSC AND BATHROOM FOR ALL TOILETING TODAY NO INCONTINENCE
--- NOTE | 2019-05-28 21:00 | NUR ---
CARE ASSUMPTION PT SLEEPING HEAVILY. WAKES TO VERBAL STIMULATION & GENTLE TOUCH. PT A&O TO SELF AND LOCATION, PLEASANT & COOPERATIVE, FOLLOWING INSTRUCTIONS THEN FALLING RIGHT BACK TO SLEEP. PT MEDICAL NO TELE STATUS. VSS. HR 50's-60's. SPO2 > 92% ON RA. WILL CONTINUE TO MONITOR AND PROVIDE CARE.
[2019-05-29 04:16] LABS: BASOPHILS ABSOLUTE AUTO 0.05 K/mm3 (0.00-0.23); BASOPHILS PERCENT AUTO 1 % (0-2); EOSINOPHILS ABSOLUTE AUTO 0.24 K/mm3 (0.00-0.68); EOSINOPHILS PERCENT AUTO 4 % (0-6); Hematocrit 36.9 % (33.0-51.0); Hemoglobin 12.7 g/dL (11.5-16.0); IMMATURE GRAN ABSOLUTE AUTO 0.03 K/mm3 (0.00-0.10); IMMATURE GRAN PERCENT AUTO 0 % (0-1); LYMPHOCYTES ABSOLUTE AUTO 1.35 K/mm3 (0.84-5.20); LYMPHOCYTES PERCENT AUTO 20 % (21-46); MONOCYTES PERCENT AUTO 7 % (4-13); Mean Corpuscular HGB 35.4 pg (26.0-34.0); Mean Corpuscular HGB Conc 34.4 g/dL (31.5-36.5); Mean Corpuscular Volume 103 fL (80-100); Mean Platelet Volume 9.7 fL (9.1-12.4); NEUTROPHILS ABSOLUTE AUTO 4.73 K/mm3 (1.96-9.15); NEUTROPHILS PERCENT AUTO 69 % (41-73); Platelet Count 293 K/mm3 (150-400); RDW Coefficient Variation 12.4 % (11.7-14.2); RDW Standard Deviation 46.5 fL (35.1-46.3); Red Blood Cell Count 3.59 M/mm3 (3.80-5.20)
[2019-05-29 04:31] LABS: Anion Gap 7 mmol/L (6-16); Blood Urea Nitrogen 12 mg/dL (8-24); Bun/Creatinine Ratio 12.7 (12.0-20.0); CO2, Blood 25 mmol/L (21-32); Calcium, Blood 8.8 mg/dL (8.5-10.1); Chloride, Blood 109 mmol/L (98-108); Creatinine, Blood 0.95 mg/dL (0.40-1.00); Glomerular Filtration Rate >60 (60-); Glucose, Blood 119 mg/dL (70-99); Potassium, Blood 3.4 mmol/L (3.5-5.5); Sodium, Blood 141 mmol/L (136-145)
--- NOTE | 2019-05-29 06:13 | NUR ---
SHIFT SUMMARY PT CONTINUES TO BE A&O TO SELF & LOCATION. PT MEDICAL NO TELE STATUS. SLEEPING HEAVILY T/O SHIFT. VSS. HR 50's-60's. SPO2 > 92% ON RA. ABD MIDLINE INCISION W/ RENETTA IN PLACE, OPEN TO AIR. PREVIOUS JAQUAN DRAIN SITE TO LLQ DRESSED W/ GAUZE. WILL CONTINUE TO MONITOR AND PROVIDE CARE UNTIL REPORT OFF TO DAY SHIFT RN.
--- NOTE | 2019-05-29 18:42 | NUR ---
SHIFT SUMMARY POD #8, RENETTA INTACT, JAQUAN DRSG SITE C/D/I, VSS, RESP UNLABORED, ON ROOM AIR. PT REMAINS INTERMITTENTLY CONFUSED WITH PERIODS OF AGITATION WORSENING THIS EVENING. SHE IS CONCERNED ABOUT HER DOGS AT HOME. PT HAS BEEN REDIRECTED/REORIENTED MULTIPLE TIMES, SNACKS AND DISTRACTION PROVIDED, WALKS AND EXERCISE ENC, PT'S 2 ADULT CHILDREN HAVE BEEN IN TO VISIT WITH HER A FEW TIMES TODAY. SHE WAS GIVEN GIVEN 25 MG IV BENEDRYL THIS EVENING PER EMAR FOR AGITATION AFTER DISCUSSING THE DISISION WITH HER DAUGHTER AND THE CHARGE NURSE. PT IS CURRENTLY RESTING IN BED, WCTM AND REPORT TO NOC RN.
--- NOTE | 2019-05-29 20:54 | NUR ---
CARE ASSUMPTION UPON CARE ASSUMPTION, PT ALERT, DISORIENTED, STATING "I TOOK THE DOGS TO THE VET TODAY, BROUGHT THEM HOME, BUT NOW I CAN'T FIND THEM." PT LOOKING FOR HER DOGS IN HER ROOM, ASKING IF THEY ARE MAYBE OUTSIDE. PT REORIENTED AND REMINDED OF DOGS BEING LOOKED AFTER BY HER FRIEND. PT THEN ASKING TO "SIT SOMEWHERE WHERE ALL THE PEOPLE ARE." PT ASSISTED TO A CHAIR W/ HER BEDSIDE TABLE IN THE [place] BY THE NURSES' STATION WHERE SHE SAT FOR A SHORT TIME UNTIL SHE WAS READY TO GO BACK TO BED. PT MORE STEADY ON HER FEET REQUIRING ONLY SBA FOR SAFETY. PT VERY PLEASANT & COOPERATIVE, CONTINUALLY EXPRESSING GRATITUDE FOR CARE. PT ORIENTED TO SELF, PLACE, FAMILY, & FOLLOWING INSTRUCTIONS. PT MEDICAL NO TELE STATUS. VSS. SOP2 > 92% ON RA. ABD MIDLINE INCISION W/ RENETTA PRESENT, OPEN TO AIR. PREVIOUS LLQ JAQUAN DRAIN SITE DRESSED W/ GAUZE. PT DENIES PAIN/DISCOMFORT. WILL CONTINUE TO MONITOR AND PROVIDE CARE.
[2019-05-30 04:52] LABS: Anion Gap 6 mmol/L (6-16); Blood Urea Nitrogen 11 mg/dL (8-24); Bun/Creatinine Ratio 13.4 (12.0-20.0); CO2, Blood 25 mmol/L (21-32); Calcium, Blood 8.7 mg/dL (8.5-10.1); Chloride, Blood 110 mmol/L (98-108); Creatinine, Blood 0.82 mg/dL (0.40-1.00); Glomerular Filtration Rate >60 (60-); Glucose, Blood 87 mg/dL (70-99); Magnesium, Blood 1.8 mg/dL (1.6-2.4); Potassium, Blood 3.8 mmol/L (3.5-5.5); Sodium, Blood 141 mmol/L (136-145)
--- NOTE | 2019-05-30 06:05 | NUR ---
SHIFT SUMMARY PT MEDICAL NO TELE STATUS. PLEASANT & COOPERATIVE, ORIENTED TO SELF, PLACE, FAMILY, & FOLLOWING INSTRUCTIONS. PT W/ EPISODES OF CONFUSION, REQUIRING REORIENTATION. VSS. SPO2 > 92% ON RA. ABD MIDLINE INCISION W/ RENETTA PRESENT, OPEN TO AIR. PREVIOUS LLQ JAQUAN DRAIN SITE DRESSED W/ GAUZE. WILL CONTINUE TO MONITOR AND PROVIDE CARE UNTIL REPORT OFF TO DAY SHIFT RN.
--- NOTE | 2019-05-30 07:38 | NUR ---
NURSING PCU DAYSHIFT: Assumed care of pt at approx 0700. Alert, oriented to self/location/following commands, forgetful at times, pleasant and fairly cooperative w/care. C/O 5-6/10 lower back pain, will discuss w/PMD poss lidocaine patch. Skin is fragile though no breakdown is noted, midline incision open to air and w/luis from recent sx, smaller abd incision dressed in gauze from previous JAQUAN drain placement. General weakness noted, able to ambulate w/one staff assist. No tele in place, no c/o CP/pressure, SBP 119, no noted edema. L/S cta t/o, O2 sat mid 90's on RA, denies dyspnea, no noted cough. Abd mildly distended/tender w/palp, BT hypoactive, voiding w/o difficulty though experiences some urgency and incontinence. PIV x1, s/l. No s/s of acute distress at this time. Call light in reach though bed alarm is set for safety purposes. Awaiting rounding from PMD, pt remains medical status w/o telemetry. Pt denies any current needs, cont to monitor for any changes.
--- NOTE | 2019-05-30 17:51 | NUR ---
ASSUMED CARE PT ARRIVED VIA W/C AND TRANSFERRED SELF TO BED INDEPENDENTLY, SETTLED TO ROOM, CALL LIGHT NEAR BY, BED IN LOWEST POSITION. WARM BLANKET PROVIDED UPON PT REQUEST. WILL CONTINUE TO MONITOR.
--- NOTE | 2019-05-30 19:03 | NUR ---
Shift Summary Pt arrived to unit @ 1750, received report from SHEA Loza. Pt apparently had a bad reaction to Ativan in PCU per report. This RN passed this info to night SHEA Maria. Pt has been resting quitely in bed and up to the bathroom x 1. No other changes.
--- NOTE | 2019-05-30 21:39 | NUR ---
PT OUT OF BED SEVERAL TIMES, EACH TIME STAFF REDIRECTED TO USE CALL LIGHT FOR ASSISTANCE. PT NON COMPLIANT. REMAINS ON OBSERVATION VIDEO FOR SAFETY THIS SHIFT. CURRENTLY RESTING QUIETLY IN BED. CALL LIGHT IN REACH.
--- NOTE | 2019-05-30 22:44 | NUR ---
PT CONTINUES TO SHOW SOME CONFUSION AND AGITATION, OUT OF BED LOOKING FOR HER "DOG" AND NEEDING REDIRECTING THAT SHE IN STILL IN THE HOSPITAL. CALL LIGHT IN REACH.
--- NOTE | 2019-05-31 04:39 | NUR ---
EARLIER IN THE SHIFT MADE SEVERAL ATTEMPTS TO GET OUT OF BED CAUSING ALARM TO GO OFF. BEHAVIOR REDIRECTED, REORIENTED BACK TO UNDERSTANDING THAT SHE WAS IN THE HOSPITAL AND THAT HER DOG WAS NOT IN THE HOSPITAL AND TO TRY TO GET SOME REST. CURRENTLY RESTING QUIETLY. CALL LIGHT IN REACH. VIDEO OBSERVATION CONTINUES. BED ALARM ON.
[2019-05-31] MEDS ORDERED: Vitamin B-121000 MCG PO (10:07)
[2019-05-31] MEDS ORDERED: ACET325 PO (10:07)
[2019-05-31] MEDS ORDERED: FOLI1 PO (10:08)
[2019-05-31] MEDS ORDERED: DILT120 PO (10:08)
[2019-05-31] MEDS ORDERED: PANT40 PO (10:09)
[2019-05-31] MEDS ORDERED: POTCHL20ER PO (10:09)
[2019-05-31] MEDS ORDERED: QUET100 PO (10:11)
[2019-05-31] MEDS ORDERED: B-1100 M1 PO (10:14)
--- NOTE | 2019-05-31 10:52 | NUR ---
PT DISCHARGED. PT DISCHARGED IN STABLE CONDITION. VSS. NO CHANGES IN ASSESSMENT PRIOR TO DC. PT TO HAVE RENETTA REMOVED O/P IN [place]. MEDS FAXED TO [facility] IN [place]. IV REMOVED & INTACT. PATIENT, DAUGHTER, AND SON EDUCATED ON DC INSTRUCTIONS. PT WHEELED OUT BY AIDE AND DRIVEN HOME BY DAUGHTER.
--- NOTE | 2019-05-31 17:59 | NUR ---
MEDS CALLED TO PHARMACY MEDS CALLED TO [facility] [place]. PT DAUGHTER NOTIFIED.
== END 2019-05-31 10:56 | disposition home or self-care (01) | DRG 326 ==
LOC: ER 14:07 → PCU 16:11 → SURS 16:11 → MEDS 16:11 → ICUW 16:11 → MEDS 05-25 05:57 → PCU 05-27 11:57 → MEDS 05-30 17:42 → ENPENDDIS 05-31 10:21 → MEDS 05-31 10:56
PROVIDERS: Emergency Medicine; Internal Medicine; Internal Medicine Gastroenterology; ADMIT Surgery
PROC: 0DU707Z Supplement Stomach, Pylorus with Autologous Tissue Substitute, Open Approach (ICD-10-PCS; principal; 2019-05-21 16:30)
DX: K25.5 Chronic or unspecified gastric ulcer with perforation (principal); K65.9 Peritonitis, unspecified; F03.91 Unspecified dementia, unspecified severity, with behavioral disturbance; G93.40 Encephalopathy, unspecified; E03.9 Hypothyroidism, unspecified; E78.00 Pure hypercholesterolemia, unspecified; K66.8 Other specified disorders of peritoneum; E53.8 Deficiency of other specified B group vitamins; F32.9 Major depressive disorder, single episode, unspecified; I48.0 Paroxysmal atrial fibrillation; E87.6 Hypokalemia
CPT/HCPCS: 36415; 70450; 74018; 74019; 74176; 74240; 80048; 80053; 80069; 81001; 82533; 82607; 82746; 83690; 83735; 84100; 84425; 84443; 85025; 86592; 86850; 86900; 86901; 93005; 93010; 96361; 96374; 96375; 97110; 97116; 97162; 97166; 97535; 99285-25; A9270; A9270-GY; C9113; J0330; J0694; J1170; J1200; J1630; J1650; J2060; J2310; J2405; J2543; J2704; J2710; J3010; J3411; J3420; J3480; J7030; J7050; J7060; J7120; P9612